=== PATIENT | male | born 1995 | race Two or more races ===

== ENCOUNTER 2025-03-31 21:23 | Emergency (ER) | payer OTHER ==
[~2025-03-31] VITALS: Ht 167.6 cm; Wt 61.2 kg
[2025-03-31] MEDS ORDERED: 0.9 % SODIUM CHLORIDE 1,000 ML IV ONE (21:45)
[2025-03-31] MEDS ORDERED: LIDOCAINE HCL 1% 10ML VIAL PERCUT ONE (21:45)
[2025-03-31] MEDS ORDERED: CEFTRIAXONE SODIUM 1,000 MG VIAL IV ONE (21:45)
[2025-03-31] MEDS ORDERED: FAMOtidine 10 MG/ML (4ML VIAL) IV ONE (21:45)
[2025-03-31] MEDS ORDERED: DIPHTH,PERTUSS(ACELL),TET VAC 0.5 ML SYRINGE IM ONE (21:45)
[2025-03-31] MEDS ORDERED: TRAMADOL HCL 50 MG TABLET PO ONE (22:00)
[2025-03-31 22:15] LABS: BASO % 0.7 % (0.1-1.2); EOS # 0.20 (0.04-0.54); EOS % 2.2 % (0.7-7.0); LYMPH # 3.82 (1.18-3.74); LYMPH % 42.2 % (19.3-53.1); MEAN PLATELET VOLUME 9.00 fl (9.4-12.4); MONO # 0.76 (0.24-0.82); MONO % 8.4 % (4.7-12.5); NEUT # 4.20 (1.56-6.13); NEUT % 46.3 % (34.0-71.1); RED CELL DISTRIBUTION WIDTH 12.0 % (11.6-14.4)
[2025-03-31 22:32] LABS: INR 1.04
[2025-03-31 22:38] LABS: ALT/SGPT 25.0 U/L (12-78); AST/SGOT 21.0 U/L (15-37); BILIRUBIN TOTAL 0.45 mg/dL (0.3-1.2); BUN CREA RATIO 18.0 (7.0-25.0); CREATININE SERUM 1.22 mg/dL (0.70-1.30); GFR 70.73; GLOBULINA 3.4 G/DL (2.4-3.5); GLUCOSE FASTING 109.0 mg/dL (65-100); OSMOLALITY SERUM 289.0 MOSM/KG (275-295)
[2025-04-01] MEDS ORDERED: KETO10TA2 PO (01:24)
[2025-04-01] MEDS ORDERED: CEPHALEXIN500 MG PO (01:24)
== END 2025-04-01 01:36 ==
LOC: ER 21:24
PROVIDERS: General Practice
DX: S01.02XA Laceration with foreign body of scalp, initial encounter (principal); W18.39XA Other fall on same level, initial encounter; Y93.89 Activity, other specified; Y92.89 Other specified places as the place of occurrence of the external cause; R51.9 Headache, unspecified
CPT/HCPCS: 12002; 36415; 70450; 72125; 90471; 90714; J1670

== ENCOUNTER 2025-04-28 10:35 | Emergency (ER) | payer OTHER ==
[~2025-04-28] VITALS: Ht 167.6 cm; Wt 61.2 kg
[~2025-04-28 10:35] MED LIST: CEPHALEXIN500 MG PO; KETO10TA2 PO
== END 2025-04-28 11:52 | disposition home or self-care (01) ==
LOC: ER 10:36
DX: Z48.02 Encounter for removal of sutures (principal)